=== PATIENT | male | born 1970 | race Caucasian/White ===

== ENCOUNTER 2024-07-07 04:57 | Emergency (ER) | payer BC, SELFPAY ==
[2024-07-07 04:58] VITALS: BP 191/141; PULSE 96; RESP 18; TEMP 36.7; O2SAT 96; BMI 34.0
--- NOTE | 2024-07-07 05:05 | EX.ED.VIS.EY ---
HPI History of Present Illness Chief Complaint: Eye Problem Informant: patient Onset/Context/Timing Location: Left Eye Onset: Yesterday Context: Gradual Onset Timing: Continuous Current Severity: Mild Maximum Severity: Mild Associated Symptoms Associated Symptoms - Eyes: Foreign body sensation, Itching and Redness History of injury: Uncertain and Foreign body Visual correction: None Narrative Narrative: 53-year-old male denies any past medical history. He does not wear glasses or contacts. Is never had eye surgery. States that last evening around dinnertime around 6:00 he had foreign body sensation left eye. Increased watering. Mild discomfort. Denies any obvious trauma. He was cutting grass and he also was cutting some metal he might got some in his eye but said he was wearing safety glasses. Prior similar symptoms: No Recent Illness/Hospitalization: No PFSH PFSH Medical History no medical history no medical history Home Medications ?Medication ?Instructions ?Recorded ?Last Taken ?Type NK 07/07/24 Unknown History naphazoline 0.025 %-pheniramine 2 drp LEFT EYE TID #15 mL 07/07/24 Unknown Rx 0.3 % eye drops (Naphcon-A) Allergy/AdvReac Type Severity Reaction Status Date / Time No Known Allergies Allergy Verified 07/07/24 05:00 Social History Smoking Status: Unknown if ever smoked ROS ROS ED ROS Narrative Denies recent illness. Constitutional Constitutional ED: Denies chills or fever(s) Eyes Eyes: Denies blurry vision ENT ENT ED: Denies ear pain Cardiovascular Cardiovascular: Denies chest pain Respiratory/Chest Respiratory/Chest: Denies cough or dyspnea Gastrointestinal Gastrointestinal: Denies abdominal pain Genitourinary Genitourinary ED: Denies dysuria or hematuria Musculoskeletal Musculoskeletal: Denies arthralgias Integumentary Denies abscess Neurologic Neurologic: Denies headache(s) Psychiatric Psychiatric: Denies anxiety Endocrine Endocrinology: Denies polydipsia or polyphagia Hematologic/Lymphatic Hematologic/Lymphatic: Denies easy bleeding, easy bruising or lymphadenopathy Allergic/Immunologic Allergic/Immunologic ED: Denies mouth swelling, tongue swelling or urticaria EXAM Physical Exam Narrative Exam Narrative: Well-appearing 53-year-old male. Vital signs stable with blood pressure elevated 191/141. That may be due to the pain in his eye. Versus undiagnosed hypertension versus just elevated blood pressure reading. H EENT exam pupils round reactive light. Extremities are intact. Left eye is already irritated. Mildly watering. No discharge. Upper and lower lids are unremarkable. They were everted. No signs of foreign body or trauma to the lids. Pupils round reactive light about 2 to 3 mm bilaterally. Extra motions are intact. There is no orbital or periorbital swelling. No proptosis. No preauricular lymphadenopathy. Neck nontender. Lungs clear equal and symmetrical. Heart regular rhythm no murmur. Rate about 90. Patient is awake and alert. Answering questions following commands. NIH 0. Abdomen soft nontender. Moving all 4 extremities. Nontender no edema. Normal strength. Normal range of motion. Const Vital Signs: 07/07/24 04:58 Temperature 98.1 F Temperature Source Oral Pulse Rate 96 Respiratory Rate 18 Blood Pressure 191/141 H Blood Pressure Mean 157 Pulse Ox 96 Oxygen Delivery Method Room Air Positive well nourished and well developed; Negative for cachectic, contractures or unkempt General Appearance ED: well developed; Negative for unkempt, cachectic or contractures Nutritional Appearance: Negative for cachectic HEENT atraumatic; Negative for trauma or tenderness Neck no lymphadenopathy, supple and no JVD Resp normal respiratory effort, no retractions, no use of accessory muscles and clear to auscultation bilaterally Cardio regular rate, regular rhythm, S1 normal heart sound, S2 normal heart sound and no murmurs GI non-tender, non-distended and no masses Back/Spine no CVA tenderness Extremity normal to inspection General Extremety ED: Negative for edema General Extremity: Negative for edema Neuro oriented x3, CN's II-XII intact bilaterally and moves all extremities Sensorium / Orientation: alert, oriented to person, oriented to place and oriented to time; Negative for orientation impaired Motor Exam: strength 5/5 throughout Psych Appearance: Negative for unkempt Attitude: No agitated Mood & Affect: Negative for depressed, anxious or tearful Skin no wounds Lesions: no lesions Rashes: no rashes MDM MDM MDM Narrative Medical decision making narrative: 53-year-old male left eye foreign body sensation. Tetracaine will be instilled in his left eye for anesthetic. Fluorescein stain and slit lamp examination of be done to evaluate for possible foreign body or corneal abrasion versus infection or other etiology. Sudden exam of the left eye showed no corneal abrasion. No foreign body. The eye was injected red and watering consistent with plica conjunctivitis. There is no discharge I do not think this is pinkeye. I everted both the upper and lower lids and no foreign bodies were noted there. Think this is more of an irritation or allergic reaction in the eye when he got dust and grass in it. Bacitracin ophthalmic ointment. Naphcon-A eyedrops. Follow-up with public health sanitarian technician if not improving in 2 days. Visual acuity to be obtained prior to discharge. History & Record Review Discussion w/independent historian: Patient Additional record(s) reviewed:: No prior records Discharge Plan Triage Chief Complaint: Eye Problem ED Provider: Bob Adams Dx/Rx/DC Orders Clinical Impression: Conjunctivitis Instructions: ED Conjunctivitis, Nonspecific Prescriptions: New Naphcon-A 0.025-0.3 % drops 2 drp LEFT EYE TID Qty: 15 0RF Rx Instructions: 2 drops in the left eye 3 times a day to decrease inflammation and irritation. No Action NK Primary Care Provider: La Carpenter Referrals: Lisa Recio MD [Med Staff - Corporate Account Executive] - Petar Shane MD [Med Staff - Active Staff] - 1-2 Days if not improving Activity Restrictions/Additional Instructions: Most likely an allergic reaction in your eye from getting grass or dust in it. I do not see a foreign body at this time. I do not see a scratch called a corneal abrasion. Cool compresses. Use the tetracaine drops till midnight tonight. There is a for discomfort. If you are having pain put 2 drops in your left eye. After midnight tonight stop using them because they can retard healing. Bacitracin ophthalmic ointment put in twice daily to help lubricate the eye and prevent any infection. Naphcon-A eyedrops this appears to be allergic reaction that will decrease the inflammation and irritation. This should progressively start to improve if not follow-up with Dr. Petar Shane at the [facility] for further evaluation of your eye. Print Language: Chadian Disposition Disposition: Home, Self Care
[2024-07-07] MEDS: Fluorescein 1 MG STRIP 1 STRIP LEFT EYE (05:09)
[2024-07-07] MEDS: Tetracaine 0.5% Ophthalmic Bottle 6 DRP LEFT EYE (05:09)
[2024-07-07 05:42] VITALS: BP 190/140; PULSE 95; RESP 18; TEMP 36.8; O2SAT 95
[2024-07-07] MEDS: Bacitracin/Polymin B Sulfate 3.5 GM OPTH.TUBE 1 APPLIC LEFT EYE (05:44)
== END 2024-07-07 05:49 | disposition home or self-care (01) ==
PROVIDERS: Emergency Provider Emergency Medicine; PCP Internal Medicine; Visit Provider Emergency Medicine
DX: H10.9 Unspecified conjunctivitis (principal)
CPT/HCPCS: 99283